=== PATIENT | male | born 1995 | race Caucasian/White ===

== ENCOUNTER 2023-05-14 09:38 | Emergency (ER) | payer OTHER ==
[2023-05-14 10:05] VITALS: O2SAT 99
[2023-05-14] MEDS ORDERED: SODIUM CHLORIDE 0.9% 1,000 ML IV STA (10:18)
--- NOTE | 2023-05-14 10:18 | ED Physician Documentation ---
History of Present Illness - Stated complaint Stated Complaint: SYNCOPE,CHEST PX - Chief complaint Chief Complaint: General - History obtained from History obtained from: Patient - Additonal information Additional information: 28-year-old gentleman who is otherwise healthy and active duty in the [employer]. Starting a couple months ago he started to get a progressive sensation of gagging and a lump in his throat. This is caused him to develop poor appetite and is having trouble keeping food down. So subsequent to that has developed a 35 pound weight loss over the last 2 months or so. He does have some chest pain feeling like his chest is at a funny angle like it is squeezing in on him. Prior to this he has no history of health problems or digestive issues. 3 days ago, presumably from poor appetite he had a syncopal episode. He has not passed out since and he was not injured. PD PAST MEDICAL HISTORY - Past Medical History Past Medical History: No - Past Surgical History Past Surgical History: No - Allergies Allergies/Adverse Reactions: Allergies Allergy/AdvReac Type Severity Reaction Status Date / Time No Known Drug Allergies Allergy Verified 05/14/23 09:59 - Social History Does the pt smoke?: No Smoking Status: Never smoker Does the pt drink ETOH?: No Does the pt have substance abuse?: No - Immunizations Immunizations are current?: Yes - POLST Patient has POLST: No PD ED PE NORMAL - Vitals Vital signs reviewed: Yes - General General: Alert and oriented X 3, Other (Occasionally gagging during speaking but his phonation is normal.) - HEENT HEENT: Pharynx benign (No visible abnormality of the oropharynx) - Neck Neck: Supple, no meningeal sign, No bony TTP - Cardiac Cardiac: RRR, No murmur - Respiratory Respiratory: No respiratory distress, Clear bilaterally - Abdomen Abdomen: Soft, Non tender - Derm Derm: No rash - Extremities Extremities: No edema, No calf tenderness / cord - Neuro Neuro: Alert and oriented X 3, Normal speech Results - Vitals Vitals: Vital Signs - 24 hr 05/14/23 09:55 Temperature 36.4 C L Heart Rate 94 Respiratory 20 Rate Blood Pressure 131/96 H O2 Saturation 99 Oxygen O2 Source Room air - EKG (time done) 1031 EKG releavant findings:: EKG personally interpreted by author of this note. Relevant findings are: Rate: Rate (enter#) (70) Rhythm: NSR Drake: Normal Intervals: Normal DE QRS: Normal Ischemia: ST elevation c/w repol. No: ST elevation c/w ischemia, ST depression - Labs Labs: Laboratory Tests 05/14/23 05/14/23 10:25 10:25 WBC 7.4 RBC 5.30 Hgb 16.8 Hct 48.3 MCV 91.1 MCH 31.7 H MCHC 34.8 RDW 11.7 L Plt Count 251 MPV 11.3 Neut # (Auto) 5.5 Lymph # (Auto) 1.3 L [place] # (Auto) 0.4 Eos # (Auto) 0.0 Baso # (Auto) 0.1 Absolute Nucleated RBC 0.00 Nucleated RBC % 0.0 Sodium 137 Potassium 4.0 Chloride 103 Carbon Dioxide 28 Anion Gap 6.0 BUN 18 Creatinine 1.0 Estimated GFR (MDRD) 88 L Glucose 97 Calcium 9.8 Total Bilirubin 0.9 AST 19 ALT 17 Alkaline Phosphatase 50 Total Protein 7.0 Albumin 4.9 Globulin 2.1 Albumin/Globulin Ratio 2.3 H - Rads (name of study) 2 view chest x-ray is unremarkable. Relevant Findings:: Final report received, EMP independent interpretation of test Soft tissue neck CT is unremarkable Relevant Findings:: Final report received, EMP independent interpretation of test PD Medical Decision Making - ED course ED course: 28-year-old gentleman with a subacute sensation of gagging causing poor appetite and weight loss.CBC and CMP unremarkable. Phonation is normal and physical examination is normal. CT of the neck and chest x-ray were normal/unremarkable. Follow-up for nasolaryngoscopy was advised. Departure - Departure Disposition: 01 Home, Self Care Clinical Impression: Gagging episode Condition: Good Record reviewed to determine appropriate education?: Yes Comments: As discussed, the chest x-ray, labs, and CAT scan of your neck were normal/unremarkable. That said, despite the negative work-up the next diagnostic test still needing to be done is nasolaryngoscopy in my opinion. This is done by a specialist known as an ENT (ear nose and throat) the closest is in [place], phone number is [phone], But [place] as well. Return if worse. Forms: PCP List
[2023-05-14 10:33] LABS: BASOPHILS # (AUTO) 0.1 10^3/uL (0.0-0.1); BASOPHILS % (AUTO) 1.1 %; EOSINOPHILS % (AUTO) 0.1 %; HCT - HEMATOCRIT 48.3 % (42.0-52.0); HGB - HEMOGLOBIN 16.8 g/dL (14.0-18.0); LYMPHOCYTES # (AUTO) 1.3 10^3/uL (1.5-3.5); LYMPHOCYTES % (AUTO) 18.1 %; MEAN CORPUSCULAR HEMOGLOBIN 31.7 pg (27.0-31.0); MEAN CORPUSCULAR HGB CONC 34.8 g/dL (32.0-36.0); MEAN CORPUSCULAR VOLUME 91.1 fL (80.0-94.0); MEAN PLATELET VOLUME 11.3 fL (7.4-11.4); MONOCYTES # (AUTO) 0.4 10^3/uL (0.0-1.0); MONOCYTES % (AUTO) 5.9 %; NEUTROPHILS # (AUTO) 5.5 10^3/uL (1.5-6.6); NEUTROPHILS % (AUTO) 74.5 %; PLT - PLATELET COUNT 251 10^3/uL (130-450); RED CELL DISTRIBUTION WIDTH 11.7 % (12.0-15.0); WHITE BLOOD COUNT 7.4 x10^3/uL (4.8-10.8)
--- NOTE | 2023-05-14 10:53 | XRAY Report ---
PROCEDURE: Chest 2 View X-Ray INDICATIONS: chest pain TECHNIQUE: 2 views of the chest were acquired. COMPARISON: None. FINDINGS: Surgical changes and devices: None. Lungs and pleura: No pleural effusions or pneumothorax. Lungs are clear. Mediastinum: Mediastinal contours appear normal. Heart size is normal. Bones and chest wall: No suspicious bony lesions. Overlying soft tissues appear unremarkable. IMPRESSION: No acute process. Reviewed by: Cristobal Azar MD on 05/14/2023 10:51 AM [facility] Approved by: Cristobal Azar MD on 05/14/2023 10:51 AM [facility] Station ID: [id number]
[2023-05-14 10:57] LABS: ALBUMIN 4.9 g/dL (3.2-5.5); ALBUMIN/GLOBULIN RATIO 2.3 (1.0-2.2); BILIRUBIN,TOTAL 0.9 mg/dL (0.2-1.0); CALCIUM 9.8 mg/dL (8.5-10.3)
--- NOTE | 2023-05-14 12:10 | CT Report ---
PROCEDURE: SOFT TISSUE NECK W INDICATIONS: gagging CONTRAST: 100ml omni 300 TECHNIQUE: After the administration of intravenous contrast, 3.0 mm axial sections acquired from the sella to th e aortic arch. Additional oblique axial 3.0 mm sections acquired through the pharynx. 3 mm thick co toby reformats were generated. For radiation dose reduction, the following was used: automated exp osure control, adjustment of mA and/or kV according to patient size. COMPARISON: None. FINDINGS: Image quality: Excellent. Lymph nodes: No enlarged lymph nodes seen throughout the neck. Vessels: Visualized vasculature appears patent. Neck spaces: The oropharynx, nasopharynx, and pharynx demonstrate no mucosal lesions. The vocal cor ds, false vocal cords, pyriform sinuses, epiglottis, vallecula, and tongue base all appear normal. E xtramucosal spaces appear unremarkable. Glands: The parotid and submandibular glands appear normal. The thyroid is normal in size and there are no incidental findings. Miscellaneous: Visualized brain and orbits appear normal. Lung apices appear clear. Superficial so ft tissues appear normal. Bones: No suspicious bony lesions. Visualized sinuses and mastoids appear unremarkable. IMPRESSION: No acute process. Reviewed by: Cristobal Marinelli MD on 05/14/2023 12:08 PM PST Approved by: Cristobal Marinelli MD on 05/14/2023 12:08 PM PST Station ID: [id number]
[2023-05-14] MEDS ORDERED: iohexoL-300 100 ML VIAL IVP ONE (12:17)
[2023-05-14 12:50] VITALS: BP 132/87
== END 2023-05-14 12:48 | disposition home or self-care (01) ==
LOC: ED 09:38
DX: R13.10 Dysphagia, unspecified (principal)
CPT/HCPCS: 36415; 70491; 71046; 80053; 85025; 93005; 99283; 99284; Q9967